=== PATIENT | female | born 1970 | race Caucasian/White ===

== ENCOUNTER → 2017-10-24 | Outpatient (CLI) | payer MEDICAID | END | disposition home or self-care (01) | LOC: Rad HDHVI 08:16 | PROVIDERS: ATTEND Internal Medicine Cardiovascular Disease | DX: G45.9 Transient cerebral ischemic attack, unspecified (principal); E11.9 Type 2 diabetes mellitus without complications | CPT/HCPCS: 93306 ==

== ENCOUNTER → 2017-11-13 | Outpatient (CLI) | payer MEDICAID ==
[~2017-11-13] VITALS: Ht 154.9 cm; Wt 104.3 kg
== END | disposition home or self-care (01) ==
LOC: Rad HDHVI 14:23
PROVIDERS: ATTEND Internal Medicine Cardiovascular Disease
DX: E11.9 Type 2 diabetes mellitus without complications (principal); G45.9 Transient cerebral ischemic attack, unspecified; Z88.0 Allergy status to penicillin; Z88.2 Allergy status to sulfonamides; Z88.1 Allergy status to other antibiotic agents
CPT/HCPCS: 78452; 93017; 96374; A9500

== ENCOUNTER → 2023-09-19 | Outpatient (CLI) | payer MEDICAID ==
[~2023-09-19] MED LIST: ASPI1TAB20 PO; ATOR10TA PO; BUM1T PO; CARI1CAP5 PO; CLON0.5T3 PO; DULO60CA41 PO; FAMO20TA10 PO; LITH450T PO; METO25TA5 PO; PANT40TA2 PO; POTA-220 PO; QUET50TA5 PO; RIME75TA PO; SEMA2INJ3 SC
== END | disposition home or self-care (01) ==
LOC: RT 10:26
PROVIDERS: ATTEND Internal Medicine Pulmonary Disease
DX: J44.9 Chronic obstructive pulmonary disease, unspecified (principal)
CPT/HCPCS: 94060; 94727; 94729

== ENCOUNTER 2023-12-13 10:39 | Emergency (ER) | payer MEDICAID ==
[~2023-12-13] VITALS: Ht 152.4 cm; Wt 110.0 kg
[2023-12-13 11:37] VITALS: BP 132/74; PULSE 94; RESP 16; TEMP 97.5; O2SAT 97
[2023-12-13] MEDS ORDERED: IBUP-1456 PO (12:51)
== END 2023-12-13 12:54 | disposition home or self-care (01) ==
LOC: ER 10:39
DX: S83.8X2A Sprain of other specified parts of left knee, initial encounter (principal); S39.012A Strain of muscle, fascia and tendon of lower back, initial encounter; S01.03XA Puncture wound without foreign body of scalp, initial encounter; F41.9 Anxiety disorder, unspecified; F32.A Depression, unspecified; K21.9 Gastro-esophageal reflux disease without esophagitis; E78.5 Hyperlipidemia, unspecified; Z88.0 Allergy status to penicillin; Z88.2 Allergy status to sulfonamides; Z88.1 Allergy status to other antibiotic agents; Z79.1 Long term (current) use of non-steroidal anti-inflammatories (NSAID); Z79.82 Long term (current) use of aspirin; Z79.899 Other long term (current) drug therapy; W10.9XXA Fall (on) (from) unspecified stairs and steps, initial encounter; Y93.89 Activity, other specified; Y92.89 Other specified places as the place of occurrence of the external cause; Y99.8 Other external cause status
CPT/HCPCS: 70450; 72100; 73562

== ENCOUNTER 2024-07-14 14:31 | Outpatient (CLI) | payer MEDICAID ==
[~2024-07-14 14:31] MED LIST changes: +IBUP-1456 PO
== END 2024-07-14 17:00 | disposition home or self-care (01) ==
LOC: RT 14:31
PROVIDERS: ATTEND Internal Medicine Pulmonary Disease
DX: J45.909 Unspecified asthma, uncomplicated (principal); R05.9 Cough, unspecified; R06.09 Other forms of dyspnea; Z79.51 Long term (current) use of inhaled steroids
CPT/HCPCS: 94060; 94618; 94727; 94729